=== PATIENT | male | born 1955 | race Caucasian/White ===

== ENCOUNTER 2023-03-03 13:31 | Inpatient (IN) | payer OTHER ==
[~2023-03-03] VITALS: Ht 175.3 cm; Wt 68.0 kg
[2023-03-03 13:47] VITALS: BP 126/66; PULSE 98; RESP 14; TEMP 96.6; O2SAT 96
[2023-03-03] MEDS ORDERED: PANTOPRAZOLE 40 MG INJ VIAL IVP ONE (14:15)
[2023-03-03] MEDS ORDERED: ONDANSETRON 4 MG/2 ML VIAL IVP ONE (14:15)
[2023-03-03] MEDS ORDERED: NACL 0.9% 1,000 ML IV SCH (14:15)
[2023-03-03] MEDS ORDERED: LORazepam 2 MG/ML VIAL IVP ONE (14:30)
[2023-03-03 15:02] LABS: BASOPHILS # (AUTO) 0.1 K/uL (0.00-0.22); BASOPHILS % (AUTO) 0.6 % (0.0-2.0); EOSINOPHILS # (AUTO) 0.6 K/uL (0-0.4); EOSINOPHILS % (AUTO) 2.6 % (0.0-4.0); HEMATOCRIT 31.2 % (36-52); HEMOGLOBIN 10.2 g/dL (12.0-18.0); LYMPHOCYTES # (AUTO) 2.2 K/uL (2.0-11.5); MEAN CORPUSCULAR HEMOGLOBIN 34 pg (27-31); MEAN CORPUSCULAR HGB CONC 33 g/dL (33-37); MEAN CORPUSCULAR VOLUME 105.4 fL (80-94); MONOCYTES # (AUTO) 1.2 K/uL (0.8-1.0); MONOCYTES % (AUTO) 5.6 % (1.7-9.3); NEUTROPHILS # (AUTO) 17.6 K/uL (1.8-7.7); NEUTROPHILS % (AUTO) 81.2 % (42.2-75.2); PLATELET COUNT (AUTO) 368 K/uL (140-450); RED BLOOD CELL COUNT(AUTO) 2.96 MIL/uL (4.20-6.10); RED CELL DISTRIBUTION WIDTH 19.6 % (11.6-13.7); WHITE BLOOD COUNT (AUTO) 21.7 K/uL (4.8-10.8)
[2023-03-03 15:14] LABS: ALBUMIN 2.5 g/dL (3.4-5.0); ANION GAP 12.9 (8-16); CALCIUM 9.3 mg/dL (8.5-10.1); CARBON DIOXIDE 30.4 mmol/L (21-32); CREATININE 1.6 mg/dL (0.6-1.3); POTASSIUM 5.3 mmol/L (3.5-5.1); TOTAL BILIRUBIN 0.4 mg/dL (0.0-1.0); TOTAL PROTEIN, SERUM 8.4 g/dL (6.4-8.2)
[2023-03-03] MEDS ORDERED: POTASSIUM CHLORIDE 10 MEQ TABER PO PRN (16:15)
[2023-03-03] MEDS ORDERED: ACETAMINOPHEN 325 MG TAB PO PRN (16:15)
[2023-03-03] MEDS ORDERED: MAG SULF 2000 MG/WATER PREMIX 50 ML IV PRN (16:15)
[2023-03-03] MEDS ORDERED: DOCUSATE SODIUM 100 MG GELCAP PO PRN (16:15)
[2023-03-03] MEDS ORDERED: ALLO300T28 PO (16:41)
[2023-03-03] MEDS ORDERED: ATOR40TA40 PO (16:43)
[2023-03-03] MEDS ORDERED: CARV25TA PO (16:46)
[2023-03-03] MEDS ORDERED: ASPI-1822 PO (16:48)
[2023-03-03] MEDS ORDERED: DOCU250S85 PO (16:56)
[2023-03-03] MEDS ORDERED: LIP80 GT (17:04)
[2023-03-03] MEDS ORDERED: CARV25TA GT (17:04)
[2023-03-03] MEDS ORDERED: MULT-2246 GT (17:04)
[2023-03-03] MEDS ORDERED: DOCU50LI8 GT (17:04)
[2023-03-03] MEDS ORDERED: ASPI-1822 GT (17:04)
[2023-03-03] MEDS ORDERED: QUET50TA GT (17:04)
[2023-03-03] MEDS ORDERED: PANT40PK GT (17:04)
[2023-03-03] MEDS ORDERED: ZYL300 GT (17:04)
[2023-03-03] MEDS ORDERED: ENAL5TAB48 PO (17:04)
[2023-03-03] MEDS ORDERED: LACO100T PO (17:04)
[2023-03-03] MEDS ORDERED: SCOP0.333 TP (17:05)
[2023-03-03] MEDS ORDERED: ASCO500T95 GT (17:05)
[2023-03-03 19:29] VITALS: PULSE 105; O2SAT 99
[2023-03-03 22:10] VITALS: BP 104/61; PULSE 104; O2SAT 100
[2023-03-03] MEDS: DEXT 5% /NACL 0.9% 1,000 ML IV SCH (22:34)
[2023-03-03 22:36] VITALS: PULSE 104; RESP 17; O2SAT 99
[2023-03-03 23:30] VITALS: PULSE 108; RESP 18; O2SAT 97
[2023-03-04] VITALS (19 sets, daily range): BP systolic 90–162; BP diastolic 58–96; PULSE 97–123; RESP 15–20; TEMP 97.4–100.1; O2SAT 93–100
[2023-03-04 03:14] LABS: APPEARANCE,URINE CLEAR (CLEAR); BILIRUBIN,URINE NEGATIVE (NEGATIVE); BLOOD, URINE NEGATIVE (NEGATIVE); COLOR,URINE YELLOW (YELLOW); LEUKOCYTE ESTERASE ,URINE NEGATIVE (NEGATIVE); NITRITE, URINE NEGATIVE (NEGATIVE); PH,URINE 7.5 (5.0-9.0); PROTEIN,URINE NEGATIVE (NEGATIVE); UGLUCOSE NEGATIVE (NEGATIVE); UROBILINOGEN,URINE 0.2 EU/dL (0.2 - 1)
[2023-03-04] MEDS: DEXT 5% /NACL 0.9% 1,000 ML IV SCH ×3 (05:44→21:06)
[2023-03-04 05:51] LABS: BASOPHILS # (AUTO) 0.1 K/uL (0.00-0.22); BASOPHILS % (AUTO) 0.3 % (0.0-2.0); EOSINOPHILS # (AUTO) 0.6 K/uL (0-0.4); EOSINOPHILS % (AUTO) 3.6 % (0.0-4.0); HEMOGLOBIN 9.1 g/dL (12.0-18.0); LYMPHOCYTES # (AUTO) 2.1 K/uL (2.0-11.5); LYMPHOCYTES % (AUTO) 12.5 % (20.5-51.1); MEAN CORPUSCULAR HEMOGLOBIN 34 pg (27-31); MEAN CORPUSCULAR HGB CONC 32 g/dL (33-37); MEAN CORPUSCULAR VOLUME 106.3 fL (80-94); MONOCYTES # (AUTO) 0.9 K/uL (0.8-1.0); MONOCYTES % (AUTO) 5.3 % (1.7-9.3); NEUTROPHILS % (AUTO) 78.3 % (42.2-75.2); PLATELET COUNT (AUTO) 346 K/uL (140-450); RED BLOOD CELL COUNT(AUTO) 2.64 MIL/uL (4.20-6.10); RED CELL DISTRIBUTION WIDTH 19.9 % (11.6-13.7); WHITE BLOOD COUNT (AUTO) 16.6 K/uL (4.8-10.8)
[2023-03-04 08:44] LABS: CARBON DIOXIDE 25.9 mmol/L (21-32); POTASSIUM 4.4 mmol/L (3.5-5.1)
[2023-03-04 08:45] LABS: ANION GAP 14.5 (8-16); CALCIUM 8.9 mg/dL (8.5-10.1); CREATININE 1.6 mg/dL (0.6-1.3)
[2023-03-04] MEDS ORDERED: PANTOPRAZOLE 40 MG INJ VIAL IVP SCH (09:00)
[2023-03-04] MEDS: PANTOPRAZOLE 40 MG INJ VIAL IVP SCH ×2 (09:41→20:15)
[2023-03-04] MEDS: LORazepam 2 MG/ML VIAL IVP PRN (17:43)
[2023-03-04] MEDS: MORPHINE SULFATE 2 MG/ML SYR IVP PRN (20:16)
[2023-03-05] VITALS (26 sets, daily range): BP systolic 94–149; BP diastolic 55–107; PULSE 95–144; RESP 14–28; TEMP 96.8–98.2; O2SAT 92–100
[2023-03-05] MEDS: LORazepam 2 MG/ML VIAL IVP PRN ×3 (00:24→19:59)
[2023-03-05 05:48] LABS: BASOPHILS % (AUTO) 0.2 % (0.0-2.0); EOSINOPHILS # (AUTO) 0.5 K/uL (0-0.4); HEMATOCRIT 27.9 % (36-52); HEMOGLOBIN 8.9 g/dL (12.0-18.0); LYMPHOCYTES # (AUTO) 1.7 K/uL (2.0-11.5); LYMPHOCYTES % (AUTO) 12.5 % (20.5-51.1); MEAN CORPUSCULAR HEMOGLOBIN 34 pg (27-31); MEAN CORPUSCULAR HGB CONC 32 g/dL (33-37); MEAN CORPUSCULAR VOLUME 107.4 fL (80-94); MONOCYTES # (AUTO) 0.8 K/uL (0.8-1.0); MONOCYTES % (AUTO) 5.7 % (1.7-9.3); NEUTROPHILS # (AUTO) 10.4 K/uL (1.8-7.7); NEUTROPHILS % (AUTO) 77.6 % (42.2-75.2); PLATELET COUNT (AUTO) 335 K/uL (140-450); RED BLOOD CELL COUNT(AUTO) 2.59 MIL/uL (4.20-6.10); RED CELL DISTRIBUTION WIDTH 19.4 % (11.6-13.7); WHITE BLOOD COUNT (AUTO) 13.5 K/uL (4.8-10.8)
[2023-03-05 05:55] LABS: ANION GAP 12.6 (8-16); CALCIUM 8.7 mg/dL (8.5-10.1); CARBON DIOXIDE 27.3 mmol/L (21-32); CREATININE 1.5 mg/dL (0.6-1.3); POTASSIUM 3.9 mmol/L (3.5-5.1)
[2023-03-05] MEDS: ALBUTEROL SULFATE/IPRATROPIU 3 ML SOL IH PRN (08:04)
[2023-03-05] MEDS: PANTOPRAZOLE 40 MG INJ VIAL IVP SCH ×2 (09:00→20:20)
[2023-03-05 10:27] LABS: APPEARANCE,URINE CLEAR (CLEAR); BILIRUBIN,URINE NEGATIVE (NEGATIVE); BLOOD, URINE NEGATIVE (NEGATIVE); COLOR,URINE YELLOW (YELLOW); LEUKOCYTE ESTERASE ,URINE NEGATIVE (NEGATIVE); NITRITE, URINE NEGATIVE (NEGATIVE); PROTEIN,URINE TRACE (NEGATIVE); UGLUCOSE NEGATIVE (NEGATIVE); UROBILINOGEN,URINE 0.2 EU/dL (0.2 - 1)
[2023-03-05 12:23] LABS: BLOOD GAS BASE EXCESS -2.2 mmol/L (-2.0-2.0); BLOOD GAS HCO3 21.8 mmol/L (22-26); BLOOD GAS PCO2 34.6 mmHg (35-45); BLOOD GAS PH 7.418 (7.35-7.45); BLOOD GAS PO2 72.1 mmHg (75-100)
[2023-03-05 12:28] LABS: BLOOD GAS O2 SAT% 94.9 % (92.0-98.5)
[2023-03-05] MEDS: metroNIDAZOLE 500 MG/NS PREMIX 100 ML IV SCH ×2 (13:53→20:18)
[2023-03-05] MEDS ORDERED: DEXTROSE IV SCH (16:45)
[2023-03-05] MEDS ORDERED: DEXTROSE 5% 1,000 ML IV SCH (17:30)
[2023-03-06] VITALS (20 sets, daily range): BP systolic 103–131; BP diastolic 35–85; PULSE 94–113; RESP 13–29; TEMP 96.5–98.7; O2SAT 9–100
[2023-03-06] MEDS: LORazepam 2 MG/ML VIAL IVP PRN ×4 (00:33→20:02)
[2023-03-06] MEDS: MORPHINE SULFATE 2 MG/ML SYR IVP PRN ×3 (01:24→23:11)
[2023-03-06] MEDS: metroNIDAZOLE 500 MG/NS PREMIX 100 ML IV SCH ×3 (04:28→20:10)
[2023-03-06 06:11] LABS: ANION GAP 12.9 (8-16); CALCIUM 7.4 mg/dL (8.5-10.1); CARBON DIOXIDE 21.1 mmol/L (21-32); CREATININE 1.4 mg/dL (0.6-1.3)
[2023-03-06 06:33] LABS: BASOPHILS # (AUTO) 0.1 K/uL (0.00-0.22); BASOPHILS % (AUTO) 1.1 % (0.0-2.0); EOSINOPHILS # (AUTO) 0.8 K/uL (0-0.4); EOSINOPHILS % (AUTO) 10.3 % (0.0-4.0); HEMATOCRIT 25.1 % (36-52); HEMOGLOBIN 7.9 g/dL (12.0-18.0); LYMPHOCYTES # (AUTO) 1.6 K/uL (2.0-11.5); LYMPHOCYTES % (AUTO) 20.8 % (20.5-51.1); MEAN CORPUSCULAR HEMOGLOBIN 35 pg (27-31); MEAN CORPUSCULAR HGB CONC 32 g/dL (33-37); MEAN CORPUSCULAR VOLUME 110.5 fL (80-94); MONOCYTES # (AUTO) 0.6 K/uL (0.8-1.0); MONOCYTES % (AUTO) 7.3 % (1.7-9.3); NEUTROPHILS # (AUTO) 4.7 K/uL (1.8-7.7); NEUTROPHILS % (AUTO) 60.5 % (42.2-75.2); PLATELET COUNT (AUTO) 251 K/uL (140-450); RED BLOOD CELL COUNT(AUTO) 2.27 MIL/uL (4.20-6.10); RED CELL DISTRIBUTION WIDTH 19.5 % (11.6-13.7); WHITE BLOOD COUNT (AUTO) 7.7 K/uL (4.8-10.8)
[2023-03-06] MEDS ORDERED: INSULIN LISPRO SLIDING SCALE 100 UNITS/ML VIAL SUBQ PRN (06:45)
[2023-03-06] MEDS ORDERED: DEXTROSE 5% 1,000 ML IV SCH (07:15)
[2023-03-06] MEDS: ALBUTEROL SULFATE/IPRATROPIU 3 ML SOL IH PRN (07:23)
[2023-03-06] MEDS ORDERED: BLOOD GLUCOSE MONITORING 1 DEV DEV FS SCH (08:00)
[2023-03-06 08:51] LABS: ALBUMIN 2.2 g/dL (3.4-5.0); ANION GAP 12.5 (8-16); CALCIUM 8.7 mg/dL (8.5-10.1); CARBON DIOXIDE 26.3 mmol/L (21-32); CREATININE 1.4 mg/dL (0.6-1.3); POTASSIUM 3.8 mmol/L (3.5-5.1); TOTAL BILIRUBIN 0.5 mg/dL (0.0-1.0); TOTAL PROTEIN, SERUM 7.3 g/dL (6.4-8.2)
[2023-03-06] MEDS: PANTOPRAZOLE 40 MG INJ VIAL IVP SCH ×2 (09:16→20:10)
[2023-03-06] MEDS: ZOLPIDEM 10 MG TAB PO PRN (22:04)
[2023-03-07] VITALS (17 sets, daily range): BP systolic 107–125; BP diastolic 26–81; PULSE 90–106; RESP 13–23; TEMP 96.3–98.1; O2SAT 94–98
[2023-03-07] MEDS: LORazepam 2 MG/ML VIAL IVP PRN ×5 (02:09→20:29)
[2023-03-07] MEDS: metroNIDAZOLE 500 MG/NS PREMIX 100 ML IV SCH ×3 (04:34→20:28)
[2023-03-07 05:25] LABS: BASOPHILS # (AUTO) 0.2 K/uL (0.00-0.22); BASOPHILS % (AUTO) 1.6 % (0.0-2.0); EOSINOPHILS # (AUTO) 1.4 K/uL (0-0.4); EOSINOPHILS % (AUTO) 12.3 % (0.0-4.0); HEMATOCRIT 30.6 % (36-52); HEMOGLOBIN 9.8 g/dL (12.0-18.0); LYMPHOCYTES # (AUTO) 2.3 K/uL (2.0-11.5); LYMPHOCYTES % (AUTO) 19.8 % (20.5-51.1); MEAN CORPUSCULAR HEMOGLOBIN 35 pg (27-31); MEAN CORPUSCULAR HGB CONC 32 g/dL (33-37); MEAN CORPUSCULAR VOLUME 107.7 fL (80-94); MONOCYTES # (AUTO) 0.8 K/uL (0.8-1.0); MONOCYTES % (AUTO) 6.7 % (1.7-9.3); NEUTROPHILS # (AUTO) 6.9 K/uL (1.8-7.7); NEUTROPHILS % (AUTO) 59.6 % (42.2-75.2); PLATELET COUNT (AUTO) 369 K/uL (140-450); RED BLOOD CELL COUNT(AUTO) 2.84 MIL/uL (4.20-6.10); RED CELL DISTRIBUTION WIDTH 19.4 % (11.6-13.7); WHITE BLOOD COUNT (AUTO) 11.6 K/uL (4.8-10.8)
[2023-03-07 05:27] LABS: ANION GAP 14.2 (8-16); CALCIUM 9.3 mg/dL (8.5-10.1); CARBON DIOXIDE 25.5 mmol/L (21-32); CREATININE 1.4 mg/dL (0.6-1.3); POTASSIUM 3.7 mmol/L (3.5-5.1)
[2023-03-07] MEDS: PANTOPRAZOLE 40 MG INJ VIAL IVP SCH ×2 (09:48→20:29)
[2023-03-07] MEDS: ONDANSETRON 4 MG/2 ML VIAL IVP PRN (09:49)
[2023-03-07] MEDS: MORPHINE SULFATE 2 MG/ML SYR IVP PRN ×3 (10:26→23:36)
[2023-03-07] MEDS ORDERED: ROC2I IM/IV (11:03)
[2023-03-07] MEDS ORDERED: METR-520 PO (11:03)
[2023-03-07] MEDS ORDERED: THERAHONEY GEL 42.5 GM TP PRN (13:05)
[2023-03-07] MEDS ORDERED: FOAM DRESSING TP PRN (13:05)
[2023-03-07] MEDS: FOAM DRESSING TP SCH (14:48)
[2023-03-07] MEDS: THERAHONEY GEL 42.5 GM TP SCH (14:54)
[2023-03-07] MEDS: ZOLPIDEM 10 MG TAB PO PRN (22:35)
[2023-03-08] VITALS (15 sets, daily range): BP systolic 99–152; BP diastolic 39–88; PULSE 93–114; RESP 14–25; TEMP 97.6–99.2; O2SAT 93–100
[2023-03-08] MEDS: metroNIDAZOLE 500 MG/NS PREMIX 100 ML IV SCH ×4 (04:04→20:51)
[2023-03-08] MEDS: LORazepam 2 MG/ML VIAL IVP PRN ×2 (06:08→15:59)
[2023-03-08 06:27] LABS: BASOPHILS # (AUTO) 0.1 K/uL (0.00-0.22); BASOPHILS % (AUTO) 0.9 % (0.0-2.0); HEMATOCRIT 27.4 % (36-52); HEMOGLOBIN 9.1 g/dL (12.0-18.0); LYMPHOCYTES % (AUTO) 21.5 % (20.5-51.1); MEAN CORPUSCULAR HEMOGLOBIN 36 pg (27-31); MEAN CORPUSCULAR HGB CONC 33 g/dL (33-37); MEAN CORPUSCULAR VOLUME 107.3 fL (80-94); MONOCYTES # (AUTO) 0.7 K/uL (0.8-1.0); MONOCYTES % (AUTO) 7.5 % (1.7-9.3); NEUTROPHILS # (AUTO) 5.4 K/uL (1.8-7.7); NEUTROPHILS % (AUTO) 59.1 % (42.2-75.2); PLATELET COUNT (AUTO) 334 K/uL (140-450); RED BLOOD CELL COUNT(AUTO) 2.56 MIL/uL (4.20-6.10); WHITE BLOOD COUNT (AUTO) 9.2 K/uL (4.8-10.8)
[2023-03-08 06:51] LABS: CALCIUM 8.4 mg/dL (8.5-10.1); CARBON DIOXIDE 25.5 mmol/L (21-32); CREATININE 1.4 mg/dL (0.6-1.3); POTASSIUM 4.5 mmol/L (3.5-5.1)
[2023-03-08] MEDS: ALBUTEROL SULFATE/IPRATROPIU 3 ML SOL IH PRN ×2 (07:43→13:25)
[2023-03-08] MEDS: PANTOPRAZOLE 40 MG INJ VIAL IVP SCH ×2 (08:33→21:23)
[2023-03-08] MEDS ORDERED: FUROSEMIDE 20 MG/2 ML VIAL IVP ONE (09:15)
[2023-03-08] MEDS: FOAM DRESSING TP SCH (11:30)
[2023-03-08] MEDS: THERAHONEY GEL 42.5 GM TP SCH (13:02)
[2023-03-08] MEDS: MORPHINE SULFATE 2 MG/ML SYR IVP PRN (20:44)
[2023-03-08] MEDS: ONDANSETRON 4 MG/2 ML VIAL IVP PRN (21:24)
[2023-03-09] VITALS (15 sets, daily range): BP systolic 96–133; BP diastolic 54–76; PULSE 88–113; RESP 17–22; TEMP 97.1–99.1; O2SAT 90–100
[2023-03-09] MEDS: LORazepam 2 MG/ML VIAL IVP PRN ×4 (02:39→20:50)
[2023-03-09] MEDS: PANTOPRAZOLE 40 MG INJ VIAL IVP SCH ×2 (09:37→20:47)
[2023-03-09] MEDS: FOAM DRESSING TP SCH (11:30)
[2023-03-09] MEDS ORDERED: Z-GUARD PASTE TP ONE (14:25)
[2023-03-09] MEDS: metroNIDAZOLE 500 MG/NS PREMIX 100 ML IV SCH ×2 (14:57→20:43)
[2023-03-09] MEDS ORDERED: Z-GUARD PASTE TP SCH (16:30)
[2023-03-09] MEDS: THERAHONEY GEL 42.5 GM TP SCH (16:32)
[2023-03-09] MEDS: ZOLPIDEM 10 MG TAB PO PRN (22:43)
[2023-03-10] VITALS (10 sets, daily range): BP systolic 98–117; BP diastolic 60–68; PULSE 92–109; RESP 20–22; TEMP 98.3–98.8; O2SAT 94–99
[2023-03-10] MEDS: metroNIDAZOLE 500 MG/NS PREMIX 100 ML IV SCH ×2 (04:17→13:54)
[2023-03-10] MEDS: LORazepam 2 MG/ML VIAL IVP PRN (08:00)
[2023-03-10] MEDS ORDERED: FOAM DRESSING TP SCH (09:00)
[2023-03-10] MEDS: PANTOPRAZOLE 40 MG INJ VIAL IVP SCH (09:22)
[2023-03-10] MEDS: FOAM DRESSING TP SCH (12:03)
[2023-03-10] MEDS: THERAHONEY GEL 42.5 GM TP SCH (13:54)
== END 2023-03-10 15:45 | DRG 870 ==
LOC: MED 13:31 → MTU 16:12 → MIC 03-04 13:58 → MTU 03-09 07:00
PROVIDERS: ADMIT General Practice; ATTEND General Practice
PROC: 5A1955Z Respiratory Ventilation, Greater than 96 Consecutive Hours (ICD-10-PCS; principal; 2023-03-03)
PROC: 5A12012 Performance of Cardiac Output, Single, Manual (ICD-10-PCS; 2023-03-04)
DX: A41.9 Sepsis, unspecified organism (principal); J69.0 Pneumonitis due to inhalation of food and vomit; I46.9 Cardiac arrest, cause unspecified; N17.0 Acute kidney failure with tubular necrosis; J96.20 Acute and chronic respiratory failure, unspecified whether with hypoxia or hypercapnia; E43 Unspecified severe protein-calorie malnutrition; K92.2 Gastrointestinal hemorrhage, unspecified; E87.1 Hypo-osmolality and hyponatremia; E87.0 Hyperosmolality and hypernatremia; D53.9 Nutritional anemia, unspecified; R74.01 Elevation of levels of liver transaminase levels; E78.5 Hyperlipidemia, unspecified; E83.42 Hypomagnesemia; E87.8 Other disorders of electrolyte and fluid balance, not elsewhere classified; Z86.73 Personal history of transient ischemic attack (TIA), and cerebral infarction without residual deficits; Z93.1 Gastrostomy status; Z93.0 Tracheostomy status; Z68.22 Body mass index [BMI] 22.0-22.9, adult
CPT/HCPCS: 36415; 36600; 71045; 76700; 80048; 80053; 81003; 82803; 82948; 83036; 83690; 83735; 83880; 84484; 85025; 85730; 86886; 86900; 86901; 87070; 87081; 87205; 89220; 93005; 94003; 94640; 96361; 96374; 96375; 99285; C9113; J0696; J1644; J1940; J2060; J2270; J2405; J3490; J7060; Q0092